=== PATIENT | female | born 1970 | race Caucasian/White ===

== ENCOUNTER → 2017-11-03 | Outpatient (CLI) | payer OTHER | END | disposition home or self-care (01) | LOC: RAD 10:26 | DX: S22.43 Multiple fractures of ribs, bilateral (principal); J45.909 Unspecified asthma, uncomplicated; Z87.891 Personal history of nicotine dependence; X58.XXXD Exposure to other specified factors, subsequent encounter | CPT/HCPCS: 71110 ==

== ENCOUNTER 2017-11-15 19:27 | Emergency (ER) | payer OTHER ==
[~2017-11-15] VITALS: Ht 154.9 cm; Wt 45.8 kg
[~2017-11-15 19:27] MED LIST: CLON1TAB PO; FLUO40CA9 PO; GABA-586 PO; LURA40TA PO; OXYC20TA PO; RANI75TA95 PO
--- NOTE | 2017-11-15 19:58 | PHYS DOC ---
Past Medical History Past Medical History: Anxiety, [place], Other Additional Past Medical Histor: cardiomyopathy, chronic back pain, endometriosis Past Surgical History: Tubal ligation, Other Additional Past Surgical Histo: R rotator cuff, UTERINE ABLATION, DNC, NOVASURE Alcohol Use: None Drug Use: None Adult General Chief Complaint Chief Complaint: PAIN CONTROL HPI HPI Patient is a 47 year old female with history of anxiety, PTSD, who presents today complaining of a constant sharp 10 out of 10 pain to her neck, right upper ribs, and low back. Patient states she fell down steps a month ago, she states she was seen at [facility] where she was admitted for 4 days. She states she was discharged and has been following up with her PCP. She states the PCP ordered her fentanyl patches for pain. She states the insurance has not approved them. She states she currently needs a pain patch while she waits for insurance approval. She states her insurance typically takes time to approve any pain medicine. She states has tried taking Lyrica with no relief. Patient denies any new injuries. Review of Systems Review of Systems Constitutional: Denies fever or chills [] Eyes: Denies change in visual acuity, redness, or eye pain [] HENT: Denies nasal congestion or sore throat [] Respiratory: Reports upper rib pain. Denies cough or shortness of breath [] Cardiovascular: No additional information not addressed in HPI [] GI: Denies abdominal pain, nausea, vomiting, bloody stools or diarrhea [] : Denies dysuria or hematuria [] Musculoskeletal: Reports neck pain and low back pain Integument: Denies rash or skin lesions [] Neurologic: Denies headache, focal weakness or sensory changes [] All other systems were reviewed and found to be within normal limits, except as documented in this note. Current Medications Current Medications Current Medications Medications (Trade) Dose Ordered Sig/[place] Start Time Stop Time Status Last Admin Dose Admin Diazepam (Valium) 5 mg 1X ONCE 11/15/17 19:45 11/15/17 19:46 UNV Fentanyl (Duragesic 75mcg/ Hr Patch) 1 patch Q3DAYS 11/18/17 09:00 UNV Allergies Allergies Allergies Coded Allergies Type Severity Reaction Last Updated Verified isoproterenol Allergy Intermediate 07/04/13 Yes Physical Exam Physical Exam Constitutional: Well developed, well nourished, no acute distress, non-toxic appearance. [] HENT: Normocephalic, atraumatic, bilateral external ears normal, oropharynx moist, no oral exudates, nose normal. [] Eyes: PERRLA, EOMI, conjunctiva normal, no discharge. [] Neck: Patient is in a cervical collar. Normal range of motion, no tenderness, supple, no stridor. [] Cardiovascular:Heart rate regular rhythm, no murmur [] Lungs & Thorax: Bilateral breath sounds clear to auscultation, tenderness on palpation of right upper ribs approximately ribs 2-4 midclavicular line. [] Abdomen: Bowel sounds normal, soft, no tenderness, no masses, no pulsatile masses. [] Skin: Warm, dry, no erythema, no rash. [] Back: No tenderness, no CVA tenderness. [] Extremities: No tenderness, no cyanosis, no clubbing, ROM intact, no edema. [] Neurologic: Alert and oriented X 3, normal motor function, normal sensory function, no focal deficits noted. [] Psychologic: Affect normal, judgement normal, mood normal. [] EKG EKG [] Radiology/Procedures Radiology/Procedures [] Course & Med Decision Making Course & Med Decision Making Pertinent Labs and Imaging studies reviewed. (See chart for details) This is a 47-year-old female patient presenting to the ED today for pain management. Patient fell a month ago. Per her statement she has rib fractures, neck fracture and low back fracture. She is supposed to be on fentanyl patches but her insurance has not approved it. She already has a prescription from her doctor. She is requesting we can give her pain patch in the ED. I ordered fentanyl patch for her. Instructed her to work with the insurance to enable her to get this patches as an outpatient. She was provided return precautions. She was discharged in stable condition. She has good follow-up. Provided return precautions and discharged. Dragon Disclaimer Dragon Disclaimer This electronic medical record was generated, in whole or in part, using a voice recognition dictation system. Departure Departure Impression: Primary Impression: Rib pain on right side Additional Impressions: Low back pain Neck pain Inadequate pain control Fall down steps Disposition: 01 HOME, SELF-CARE Condition: STABLE Referrals: JULIÁN AQUINO DO (PCP) follow up this week Patient Instructions: Fall Prevention and Home Safety, [id number], Rib Fracture, [id number] Additional Instructions: You were evaluated in the emergency room for pain. You have a fentanyl patch on. Please continue working with your insurance so that they can fill your prescription pain medications. Come back to the emergency room at any point symptoms worsen. Follow-up with your doctor in the next 1 week. Problem Qualifiers Additional Impressions: Low back pain Chronicity: acute Back pain laterality: bilateral Sciatica presence: without sciatica Qualified Codes: M54.5 - Low back pain Fall down steps Encounter type: subsequent encounter Qualified Codes: W10.8XXD - Fall (on) ( from) other stairs and steps, subsequent encounter BALTAZAR GUZMAN CUTTING MACHINE OPERATOR HELPER Nov 15, 2017 19:58
[2017-11-15] MEDS ORDERED: fentaNYL 75MCG/HR PATCH 1 PATCH PATCH.TD72 TD SCH (20:00)
[2017-11-15] MEDS ORDERED: diazePAM 5 MG TABLET PO ONE (20:00)
[2017-11-15 20:35] VITALS: BP 127/66
== END 2017-11-15 20:56 | disposition home or self-care (01) ==
LOC: ER 19:27
DX: R07.81 Pleurodynia (principal); M54.5 Low back pain; M54.2 Cervicalgia; G89.29 Other chronic pain; F41.9 Anxiety disorder, unspecified; I25.2 Old myocardial infarction; Z98.51 Tubal ligation status; Z88.8 Allergy status to other drugs, medicaments and biological substances; W10.9XXA Fall (on) (from) unspecified stairs and steps, initial encounter; Y93.89 Activity, other specified; Y92.89 Other specified places as the place of occurrence of the external cause; Y99.8 Other external cause status
CPT/HCPCS: 99283

== ENCOUNTER 2018-05-21 09:56 | Emergency (ER) | payer OTHER ==
[~2018-05-21] VITALS: Ht 154.9 cm; Wt 43.1 kg
[~2018-05-21 09:56] MED LIST changes: -GABA-586 PO; +GABA300C18 PO; +RANI-348 PO; -RANI75TA95 PO
[2018-05-21] MEDS ORDERED: ASPIRIN 325 MG TABLET PO ONE (10:15)
[2018-05-21 10:22] LABS: BASO % 0 % (0-3); EOS % 0 % (0-3); HEMATOCRIT 45.6 % (36.0-47.0); HEMOGLOBIN 15.4 g/dL (12.0-15.5); LYMPH # 1.2 x10^3/uL (1.0-4.8); LYMPH % 17 % (24-48); MEAN CORPUSCULAR HEMOGLOBIN 31 pg (25-35); MEAN CORPUSCULAR HGB CONC 34 g/dL (31-37); MEAN CORPUSCULAR VOLUME 92 fL (79-100); MONO # 1.1 x10^3/uL (0.0-1.1); MONO % 16 % (0-9); NEUT # 4.7 x10^3uL (1.8-7.7); NEUT % 67 % (31-73); PLATELET COUNT 205 x10^3/uL (140-400); RED BLOOD COUNT 4.96 x10^6/uL (3.50-5.40); RED CELL DISTRIBUTION WIDTH 13.7 % (11.5-14.5)
[2018-05-21 10:34] LABS: CALCIUM 9.6 mg/dL (8.5-10.1); CREATININE 0.5 mg/dL (0.6-1.0); GFR 133.4; POTASSIUM 4.1 mmol/L (3.5-5.1); PROTHROMBIN TIME PATIENT 13.3 SEC (11.7-14.0)
[2018-05-21 10:42] LABS: ALBUMIN 4.2 g/dL (3.4-5.0); ALBUMIN/GLOBULIN RATIO 1.2 (1.0-1.7); MAGNESIUM 2.2 mg/dL (1.8-2.4); TOTAL BILIRUBIN 0.3 mg/dL (0.2-1.0); TOTAL PROTEIN 7.8 g/dL (6.4-8.2)
[2018-05-21 10:48] LABS: CREATINE KINASE 34 U/L (26-192)
--- NOTE | 2018-05-21 11:08 | EKG ---
[facility] [address] [place] [address] Test Date: 2018-05-21 Test Time: 10:01:41 Pat Name: KAT TURNER Department: Room: Gender: F Journalism Professor: : 1970 Requested By: SHANNEN MYERS Order Number: [id number] Reading MD: Richard Redding Measurements Intervals [place] Rate: 79 P: 59 WA: 130 QRS: 91 QRSD: 98 T: 55 QT: 366 QTc: 421 Interpretive Statements SINUS RHYTHM RIGHTWARD AXIS Electronically Signed On 05-22-2018 11:06:32 RAILROAD SIGNAL AND SWITCH OPERATOR by Richard Redding
--- NOTE | 2018-05-21 11:38 | RAD ---
PORTABLE CHEST 1V, THORACIC SPINE 3V History: chest, upper back pain x4 days. no known injury Comparison: Prior chest x-ray July 03, 2013. CHEST: Heart size is not enlarged. Fractures of the right second ribs bilaterally, was not seen previously. Fractures are mildly displaced. There appears to be some callus indicating these are not acute, depending on clinical correlation. There is no evidence of airspace consolidation, pleural effusion or pneumothorax. Density within the right humeral head, has a appearance suggestive of enchondroma. 3 view thoracic spine Bilateral right second rib fractures are again seen, with evidence of callus suggesting these are nonacute. Vertebral body height in the thoracic spine is intact. There is some irregularity of the anterosuperior aspect of an upper lumbar vertebrae, approximately L3, could be a fracture. No evidence of paraspinal soft tissue swelling. IMPRESSION: 1. Bilateral second rib fractures. These are mildly displaced, likely are not acute. 2. Limited visualization demonstrates a possible fracture at the anterosuperior corner of the probable L3 vertebral body. Dedicated lumbar radiographs could further evaluate. Electronically signed by: Jose Miranda MD (05/21/2018 11:35 AM) [facility]
[2018-05-21 11:40] LABS: BILIRUBIN,URINE NEGATIVE (NEG); CLARITY,URINE CLEAR; COLOR,URINE YELLOW; NITRITE,URINE NEGATIVE (NEG); PROTEIN,URINE NEGATIVE (NEG-TRACE); UROBILINOGEN,URINE 0.2 mg/dL (0.2 mg/dL)
[2018-05-21 11:50] LABS: BARBITURATES NEG (NEG); BENZODIAZEPINES NEG (NEG); CANNABINOIDS POS (NEG); COCAINE NEG (NEG); METHADONE NEG (NEG); OPIATES POS (NEG); PHENCYCLIDINE NEG (NEG)
[2018-05-21 11:52] LABS: AMPHETAMINE/METHAMPHETAMINE POS (NEG)
[2018-05-21 11:56] LABS: SQUAMOUS EPITHELIAL CELL,UR FEW /LPF
[2018-05-21 11:57] LABS: BACTERIA,URINE 0 /HPF (0-FEW); WBC,URINE 0 /HPF (0-4)
[2018-05-21] MEDS ORDERED: KETOROLAC 15 MG/ML VIAL. IV ONE (12:00)
--- NOTE | 2018-05-21 12:27 | PHYS DOC ---
Past Medical History Past Medical History: Anxiety, [place], Other Additional Past Medical Histor: cardiomyopathy, chronic back pain, endometriosis, STICKLER'S SYNDROME Past Surgical History: Tubal ligation, Other Additional Past Surgical Histo: R rotator cuff, UTERINE ABLATION, D&C, NOVASURE Alcohol Use: None Drug Use: None Adult General Chief Complaint Chief Complaint: BACK PAIN - NO INJURY HPI HPI Patient is a 47 year old presented to the ER today for evaluation of upper back pain, bilateral scapular pain that woke her up from her sleep at 4 am today. Patient said she was nauseous, felt sweaty. Patient fell last September, sustained fracture of her lumbar spine and 5 ribs fracture. Patient has been taking pain medications since. Patient was seen by her doctor last week, switched to a different pain medication last week. She denied any nausea or vomiting. No fever. No chest pain, no shortness of air, no abdominal pain. Review of Systems Review of Systems Constitutional: Denies fever or chills [] Eyes: Denies change in visual acuity, redness, or eye pain [] HENT: Denies nasal congestion or sore throat [] Respiratory: Denies cough or shortness of breath [] Cardiovascular: No additional information not addressed in HPI [] GI: Denies abdominal pain, nausea, vomiting, bloody stools or diarrhea [] : Denies dysuria or hematuria [] Musculoskeletal: Positive for upper back pain. Integument: Denies rash or skin lesions [] Neurologic: Denies headache, focal weakness or sensory changes [] Endocrine: Denies polyuria or polydipsia [] All other systems were reviewed and found to be within normal limits, except as documented in this note. Current Medications Current Medications Current Medications Medications (Trade) Dose Ordered Sig/[facility] Start Time Stop Time Status Last Admin Dose Admin Aspirin (Jodi Aspirin) 325 mg 1X ONCE 05/21/18 10:15 05/21/18 10:18 DC 05/21/18 10:49 325 MG Ketorolac Tromethamine (Toradol 15mg Vial) 15 mg 1X ONCE 05/21/18 12:00 05/21/18 12:01 DC 05/21/18 12:12 15 MG Allergies Allergies Allergies Coded Allergies Type Severity Reaction Last Updated Verified isoproterenol Allergy Intermediate 07/04/13 Yes Physical Exam Physical Exam Constitutional: Well developed, well nourished, no acute distress, non-toxic appearance. [] HENT: Normocephalic, atraumatic, bilateral external ears normal, oropharynx moist, no oral exudates, nose normal. [] Eyes: PERRLA, EOMI, conjunctiva normal, no discharge. [] Neck: Normal range of motion, no tenderness, supple, no stridor. [] Cardiovascular:Heart rate regular rhythm, no murmur [] Lungs & Thorax: Bilateral breath sounds clear to auscultation, Tender to palpation upper posterior ribs. Abdomen: Bowel sounds normal, soft, no tenderness, no masses, no pulsatile masses. [] Skin: Warm, dry, Patient numerous skin lesions on her face and neck area, appeared she was picking on it. Back: No tenderness, no CVA tenderness. [] Extremities: No tenderness, no cyanosis, no clubbing, ROM intact, no edema. [] Neurologic: Alert and oriented X 3, normal motor function, normal sensory function, no focal deficits noted. [] Psychologic: Affect normal, judgement normal, mood normal. [] Current Patient Data Vital Signs Vital Signs Date Time Temp Pulse Resp B/P (MAP) Pulse Ox O2 Delivery O2 Flow Rate FiO2 05/21/18 09:59 99.0 91 18 145/65 (91) 97 Room Air 99.0 Lab Values Laboratory Tests Test 05/21/18 10:09 05/21/18 11:19 White Blood Count 7.0 x10^3/uL (4.0-11.0) Red Blood Count 4.96 x10^6/uL (3.50-5.40) Hemoglobin 15.4 g/dL (12.0-15.5) Hematocrit 45.6 % (36.0-47.0) Mean Corpuscular Volume 92 fL (79-100) Mean Corpuscular Hemoglobin 31 pg (25-35) Mean Corpuscular Hemoglobin Concent 34 g/dL (31-37) Red Cell Distribution Width 13.7 % (11.5-14.5) Platelet Count 205 x10^3/uL (140-400) Neutrophils (%) (Auto) 67 % (31-73) Lymphocytes (%) (Auto) 17 % (24-48) L Monocytes (%) (Auto) 16 % (0-9) H Eosinophils (%) (Auto) 0 % (0-3) Basophils (%) (Auto) 0 % (0-3) Neutrophils # (Auto) 4.7 x10^3uL (1.8-7.7) Lymphocytes # (Auto) 1.2 x10^3/uL (1.0-4.8) Monocytes # (Auto) 1.1 x10^3/uL (0.0-1.1) Eosinophils # (Auto) 0.0 x10^3/uL (0.0-0.7) Basophils # (Auto) 0.0 x10^3/uL (0.0-0.2) Prothrombin Time 13.3 SEC (11.7-14.0) Prothrombin Time INR 1.0 (0.8-1.1) Sodium Level 137 mmol/L (136-145) Potassium Level 4.1 mmol/L (3.5-5.1) Chloride Level 102 mmol/L (98-107) Carbon Dioxide Level 21 mmol/L (21-32) Anion Gap 14 (6-14) Blood Urea Nitrogen 7 mg/dL (7-20) Creatinine 0.5 mg/dL (0.6-1.0) L Estimated GFR (Cockcroft-Gault) 133.4 BUN/Creatinine Ratio 14 (6-20) Glucose Level 111 mg/dL (70-99) H Calcium Level 9.6 mg/dL (8.5-10.1) Magnesium Level 2.2 mg/dL (1.8-2.4) Total Bilirubin 0.3 mg/dL (0.2-1.0) Aspartate Amino Transferase (AST) 25 U/L (15-37) Alanine Aminotransferase (ALT) 37 U/L (14-59) Alkaline Phosphatase 63 U/L (46-116) Creatine Kinase 34 U/L (26-192) Creatine Kinase MB (Mass) < 0.5 ng/mL (0.0-3.6) Creatine Kinase MB Relative Index % (0-4) Troponin I Quantitative 0.019 ng/mL (0.000-0.055) [id number]-Type Natriuretic Peptide 209 pg/mL (0-124) H Total Protein 7.8 g/dL (6.4-8.2) Albumin 4.2 g/dL (3.4-5.0) Albumin/Globulin Ratio 1.2 (1.0-1.7) Lipase 431 U/L (73-393) H Urine Collection Type Unknown Urine Color Yellow Urine Clarity Clear Urine pH 6.0 Urine Specific [place] 1.020 Urine Protein Negative mg/dL (NEG-TRACE) Urine Glucose (UA) Negative mg/dL (NEG) Urine Ketones (Stick) Negative mg/dL (NEG) Urine Blood Small (NEG) Urine Nitrite Negative (NEG) Urine Bilirubin Negative (NEG) Urine Urobilinogen Dipstick 0.2 mg/dL (0.2 mg/dL) Urine Leukocyte Esterase Negative (NEG) Urine RBC 3-5 /HPF (0-2) Urine WBC 0 /HPF (0-4) Urine Squamous Epithelial Cells Few /LPF Urine Bacteria 0 /HPF (0-FEW) Urine Mucus Mod /LPF Urine Opiates Screen Pos (NEG) Urine Methadone Screen Neg (NEG) Urine Barbiturates Neg (NEG) Urine Phencyclidine Screen Neg (NEG) Urine Amphetamine/Methamphetamine Pos (NEG) Urine Benzodiazepines Screen Neg (NEG) Urine Cocaine Screen Neg (NEG) Urine Cannabinoids Screen Pos (NEG) Urine Ethyl Alcohol Neg (NEG) Laboratory Tests 05/21/18 10:09 Laboratory Tests 05/21/18 10:09 EKG EKG [] Radiology/Procedures Radiology/Procedures [][facility] [address] [place], [place] [id number] IMAGING REPORT Signed PATIENT: KAT TURNER ACCOUNT: [id number] : 1970 LOCATION: ER AGE: 47 SEX: F EXAM STATUS: REG ER ORD. PHYSICIAN: SHANNEN MYERS DO REASON: CHEST PAIN PROCEDURE: THORACIC SPINE 3V PORTABLE CHEST 1V, THORACIC SPINE 3V History: chest, upper back pain x4 days. no known injury Comparison: Prior chest x-ray July 03, 2013. CHEST: Heart size is not enlarged. Fractures of the right second ribs bilaterally, was not seen previously. Fractures are mildly displaced. There appears to be some callus indicating these are not acute, depending on clinical correlation. There is no evidence of airspace consolidation, pleural effusion or pneumothorax. Density within the right humeral head, has a appearance suggestive of enchondroma. 3 view thoracic spine Bilateral right second rib fractures are again seen, with evidence of callus suggesting these are nonacute. Vertebral body height in the thoracic spine is intact. There is some irregularity of the anterosuperior aspect of an upper lumbar vertebrae, approximately L3, could be a fracture. No evidence of paraspinal soft tissue swelling. IMPRESSION: 1. Bilateral second rib fractures. These are mildly displaced, likely are not acute. 2. Limited visualization demonstrates a possible fracture at the anterosuperior corner of the probable L3 vertebral body. Dedicated lumbar radiographs could further evaluate. Electronically signed by: Jose Miranda MD (05/21/2018 11:35 AM) [facility] DICTATED and SIGNED BY: JOSE MIRANDA MD DATE: 05/21/18 1123 [facility] [address] [place] [address] IMAGING REPORT Signed PATIENT: KAT TURNER ACCOUNT: [id number] : 1970 LOCATION: ER AGE: 47 SEX: F EXAM STATUS: REG ER ORD. PHYSICIAN: SHANNEN MYERS DO REASON: BACK PAIN PROCEDURE: LUMBAR SPINE 2-3V Three-view lumbar spine HISTORY: Low back pain after a fall 6 months ago. FINDINGS: There is a fracture of the anterosuperior corner of the L3 vertebral body. There is also mild compression fracture of the superior endplate of L2. Lower spine obscured by moderate stool in the visualized colon. No evidence of subluxation. IMPRESSION: Fractures of L2 and L3 vertebral bodies. Electronically signed by: Jose Miranda MD (05/21/2018 1:14 PM) [facility] DICTATED and SIGNED BY: JOSE MIRANDA MD DATE: 05/21/18 1312 Course & Med Decision Making Course & Med Decision Making Pertinent Labs and Imaging studies reviewed. (See chart for details) [] Dragon Disclaimer Dragon Disclaimer This electronic medical record was generated, in whole or in part, using a voice recognition dictation system. Departure Departure Impression: Primary Impression: Closed rib fracture Additional Impressions: Lumbar vertebral fracture Fx lumbar vertebra-closed Disposition: 01 HOME, SELF-CARE Condition: STABLE Referrals: JULIÁN AQUINO DO (PCP) FOLLOW UP WITH YOUR DOCTOR NEXT WEEK FOR PAIN MEDICATION Patient Instructions: Lumbar Fracture, Rib Fracture, [id number] Scripts Tramadol Hcl (TRAMADOL HCL) 50 Mg Tablet 50 MG PO Q6HRS PRN for PAIN, #20 TAB Prov: SHANNEN MYERS DO 05/21/18 Problem Qualifiers SHANNEN MYERS DO May 21, 2018 12:27
--- NOTE | 2018-05-21 13:17 | RAD ---
Three-view lumbar spine HISTORY: Low back pain after a fall 6 months ago. FINDINGS: There is a fracture of the anterosuperior corner of the L3 vertebral body. There is also mild compression fracture of the superior endplate of L2. Lower spine obscured by moderate stool in the visualized colon. No evidence of subluxation. IMPRESSION: Fractures of L2 and L3 vertebral bodies. Electronically signed by: Jose Miranda MD (05/21/2018 1:14 PM) [facility]
[2018-05-21 13:34] VITALS: BP 130/74
[2018-05-21] MEDS ORDERED: TRAM50TA PO (13:50)
== END 2018-05-21 14:12 | disposition home or self-care (01) ==
LOC: ER 09:56
DX: S22.32XG Fracture of one rib, left side, subsequent encounter for fracture with delayed healing (principal); S22.31XG Fracture of one rib, right side, subsequent encounter for fracture with delayed healing; S32.029G Unspecified fracture of second lumbar vertebra, subsequent encounter for fracture with delayed healing; S32.039G Unspecified fracture of third lumbar vertebra, subsequent encounter for fracture with delayed healing; I25.2 Old myocardial infarction; G89.29 Other chronic pain; Z88.8 Allergy status to other drugs, medicaments and biological substances; W18.39XD Other fall on same level, subsequent encounter
CPT/HCPCS: 36415; 71045; 72072; 72100; 80053; 80307; 81001; 82550; 82553; 83690; 83735; 83880; 84484; 85025; 85610; 93005; 96374; 99284; J1885

== ENCOUNTER → 2020-02-13 | Outpatient (CLI) | payer MEDICAID ==
[~2020-02-13] MED LIST changes: -RANI-348 PO; +RANI-369 PO; +TRAM50TA PO
--- NOTE | 2020-02-13 15:42 | KCIC ---
EXAMINATION: Magnetic resonance imaging (MRI) of the cervical spine without contrast 02/13/2020 2:45 PM HISTORY: Neck pain, cervical stenosis and spondylosis TECHNIQUE: Multiplanar multi-weighted MRI of the cervical spine was performed without intravenous contrast using the standard cervical spine protocol. Contrast information: None administered COMPARISON: None available. FINDINGS: Evaluation is partly limited by motion artifact. Scratch that there is reversal the normal cervical lordosis. There is kyphosis centered at C4-C5. There is grade 1 retrolisthesis of C5 on C6. Minimal anterolisthesis of C3 on C4 and C4 on C5. There is minimal height loss involving C7 with less than 15 percent height loss, likely chronic. There is moderate disc height loss at C4-C5 and C5-C6. Disc desiccation is noted at all levels of the cervical spine. Cervical spinal cord signal intensity is normal in all sequences. Posterior fossa is normal in appearance. Vertebral artery flow voids are maintained. There is no prevertebral soft tissue swelling. Skull base is intact. Atlantoaxial articulation appears intact. Craniocervical junction is normal. C2-C3: There is mild disc bulge. Moderate right and mild left facet arthropathy. No significant uncovertebral joint disease. No neuroforaminal or spinal canal stenosis. C3-C4: There is mild disc bulge. Mild facet arthropathy. No neuroforaminal or spinal canal stenosis. C4-C5: There is a posterior disc osteophyte complex with left foraminal disc protrusion. Moderate right and mild left facet arthropathy. Moderate to severe left neuroforaminal stenosis. Mild spinal canal stenosis without deformity of the cord or cord signal alteration. Findings are exacerbated by ligamentum flavum infolding. C5-C6: There is a posterior disc osteophyte complex. There is mild facet arthropathy. Moderate uncovertebral joint disease moderate to severe bilateral neuroforaminal stenosis. Mild spinal canal stenosis without deformity of the cord or cord signal alteration. Findings are exacerbated by ligamentum flavum infolding. C6-C7: There is a disc bulge asymmetric to the left. Mild facet arthropathy. Mild uncovertebral joint disease. Mild bilateral neuroforaminal stenosis. No spinal canal stenosis. C7-T1: Disc is normal in configuration. No neuroforaminal or spinal canal stenosis. IMPRESSION: Mild to moderate degenerative changes of the cervical spine, as described in detail above. Minimal height loss is identified at C7 without acute marrow edema. Findings favor chronic superior plate compression deformity less than 50 percent height loss. Electronically signed by: Pascale Dukes MD (02/13/2020 3:39 PM) [facility]
== END ==
LOC: KCIC MRI 14:42
DX: M47.812 Spondylosis without myelopathy or radiculopathy, cervical region (principal); M43.12 Spondylolisthesis, cervical region; M40.40 Postural lordosis, site unspecified; M40.292 Other kyphosis, cervical region; M43.8X2 Other specified deforming dorsopathies, cervical region
CPT/HCPCS: 72141